=== PATIENT | male | born 1985 | race Caucasian/White ===

== ENCOUNTER 2023-08-24 08:55 | Emergency (ER) | payer OTHER ==
[2023-08-24 09:55] LABS: BASOPHILS # (AUTO) 0.1 10^3/uL (0.0-0.1); BASOPHILS % (AUTO) 1.6 %; EOSINOPHILS # (AUTO) 0.2 10^3/uL (0.0-0.7); EOSINOPHILS % (AUTO) 3.2 %; HGB - HEMOGLOBIN 14.2 g/dL (14.0-18.0); LYMPHOCYTES # (AUTO) 1.2 10^3/uL (1.5-3.5); MEAN CORPUSCULAR HEMOGLOBIN 29.3 pg (27.0-31.0); MEAN CORPUSCULAR HGB CONC 31.6 g/dL (32.0-36.0); MEAN CORPUSCULAR VOLUME 92.8 fL (80.0-94.0); MEAN PLATELET VOLUME 9.7 fL (7.4-11.4); MONOCYTES # (AUTO) 0.5 10^3/uL (0.0-1.0); MONOCYTES % (AUTO) 9.3 %; NEUTROPHILS # (AUTO) 3.6 10^3/uL (1.5-6.6); NEUTROPHILS % (AUTO) 63.5 %; PLT - PLATELET COUNT 264 10^3/uL (130-450); RED BLOOD COUNT 4.85 10^6/uL (4.70-6.10); RED CELL DISTRIBUTION WIDTH 12.7 % (12.0-15.0); WHITE BLOOD COUNT 5.6 x10^3/uL (4.8-10.8)
[2023-08-24 10:15] LABS: ALBUMIN 4.4 g/dL (3.2-5.5); ALBUMIN/GLOBULIN RATIO 1.6 (1.0-2.2); BILIRUBIN,TOTAL 0.4 mg/dL (0.2-1.0); CALCIUM 9.8 mg/dL (8.5-10.3); CREATININE 0.9 mg/dL (0.6-1.3); POTASSIUM 4.2 mmol/L (3.5-4.5); TOTAL PROTEIN 7.1 g/dL (6.4-8.9)
[2023-08-24 10:17] LABS: TROPONIN I HIGH SENSITIVITY 2.6 ng/L (2.3-19.7)
--- NOTE | 2023-08-24 11:09 | ED Physician Documentation ---
History of Present Illness - Stated complaint Stated Complaint: HIGH BP, LOPEZ, DIZZY - Chief complaint Chief Complaint: Neuro - History obtained from History obtained from: Patient - History of Present Illness Timing: How many days ago (5) - Additonal information Additional information: Minor Parham is a previously healthy 37-year-old male who comes to the emergency department with concerns of a 5-day history of headache, dizziness in the form of lightheadedness with worsening with head position as well as an elevated blood pressure. He does state that he hydrates adequately drinking up to 102 ounces of fluid a day. He has decreased his caffeine consumption the last 2 days. The drinks occasionally and maybe 20 beers per month. He is not currently drinking. He called the [facility] and they asked him to come to the emergency room for evaluation. He has a prior history of multiple ear infections as a child having tubes placed. He does not have a history of sinus infections. He denies exertional dyspnea is still going out to walk 5 miles per day. He is feeling he has some fluid retention when he walks. Review of Systems Constitutional: denies: Fever Eyes: denies: Decreased vision Ears: denies: Ear pain Nose: denies: Rhinorrhea / runny nose, Congestion, Sinus pressure / pain Throat: denies: Sore throat Cardiac: denies: Chest pain / pressure Respiratory: denies: Dyspnea, Cough GI: denies: Abdominal Pain, Nausea, Vomiting, Constipation, Diarrhea : denies: Dysuria, Frequency Skin: denies: Rash Musculoskeletal: denies: Neck pain, Back pain, Extremity pain Neurologic: reports: Headache. denies: Generalized weakness, Focal weakness, Numbness, Difficulty speaking, Confused, Altered mental status, Head injury, LOC PD PAST MEDICAL HISTORY - Past Medical History Past Medical History: No - Past Surgical History Past Surgical History: Yes HEENT: Myringotomy (tubes) - Present Medications Home Medications: Ambulatory Orders Medication Instructions Recorded Confirmed Testosterone Cypionate 100 mg IM DAILY 08/24/23 08/24/23 - Allergies Allergies/Adverse Reactions: Allergies Allergy/AdvReac Type Severity Reaction Status Date / Time No Known Drug Allergies Allergy Verified 08/24/23 09:09 - Social History Does the pt smoke?: No Smoking Status: Never smoker Does the pt drink ETOH?: Yes Does the pt have substance abuse?: No - Immunizations Immunizations are current?: Yes PD ED PE NORMAL - Vitals Vital signs reviewed: Yes (hpyertensive) - General General: Alert and oriented X 3, No acute distress, Well developed/nourished - HEENT HEENT: Atraumatic, PERRL, EOMI, Pharynx benign, Other (The left TM is clear with extensive tympanosclerosis present. The right is clear as well with less scarring. No maxillary sinus point tenderness.) - Neck Neck: Supple, no meningeal sign, No bony TTP - Cardiac Cardiac: RRR, No murmur - Respiratory Respiratory: No respiratory distress, Clear bilaterally - Abdomen Abdomen: Normal bowel sounds, Soft, Non tender, Non distended, No organomegaly - Back Back: No CVA TTP, No spinal TTP - Derm Derm: Normal color, Warm and dry, No rash - Extremities Extremities: No deformity, No edema - Neuro Neuro: Alert and oriented X 3, procedures tech 2-12 intact, No motor deficit, No sensory deficit, Normal speech Eye Opening: Spontaneous Motor: Obeys Commands Verbal: Oriented GCS Score: 15 - Psych Psych: Normal mood, Normal affect Results - Vitals Vitals: Vital Signs - 24 hr 08/24/23 08/24/23 08/24/23 09:05 11:22 12:50 Temperature 36.5 C Heart Rate 68 62 64 Respiratory 16 18 18 Rate Blood Pressure 143/88 H 131/85 H 142/93 H O2 Saturation 99 97 100 Oxygen O2 Source Room air - EKG (time done) 0954 EKG releavant findings:: EKG personally interpreted by author of this note. Relevant findings are: Rate: Rate (enter#) (64) Rhythm: NSR Ischemia: ST elevation c/w repol Compare to prior EKG: Old EKG unavailable Computer interpretation: Agree with computer - Labs Labs: Laboratory Tests 08/24/23 08/24/23 09:50 09:50 WBC 5.6 RBC 4.85 Hgb 14.2 Hct 45.0 MCV 92.8 MCH 29.3 MCHC 31.6 L RDW 12.7 Plt Count 264 MPV 9.7 Neut # (Auto) 3.6 Lymph # (Auto) 1.2 L Rusk # (Auto) 0.5 Eos # (Auto) 0.2 Baso # (Auto) 0.1 Absolute Nucleated RBC 0.00 Nucleated RBC % 0.0 Sodium 139 Potassium 4.2 Chloride 105 Carbon Dioxide 31 Anion Gap 3.0 L BUN 16 Creatinine 0.9 Estimated GFR (MDRD) 94 Glucose 78 Calcium 9.8 Total Bilirubin 0.4 AST 16 ALT 16 Alkaline Phosphatase 46 Troponin I High Sens 2.6 Total Protein 7.1 Albumin 4.4 Globulin 2.7 Albumin/Globulin Ratio 1.6 Lipase 20 - Rads (name of study) Sinus CT Relevant Findings:: Prelim report reviewed (Impression: Very minimal scattered areas of mucosal thickening without fluid levels.), EMP independent interpretation of test, See rad report Procedures - IVC sono (time) 1100 Bedside IVC sono: IVC measures (cm) (1.77), Euvolemia PD Medical Decision Making - ED course Complexity details: reviewed results, re-evaluated patient, considered differential, d/w patient Reviewed Lab Results: We reviewed a complete blood count which was demonstrating a normal white blood cell count normal hemoglobin hematocrit and platelets normal indices chemistries showed normal electrolytes normal kidney and liver function. These laboratory studies did not contribute to any specific diagnosis they are reassuring for a benign process. ED course: Minor Parham is presenting with a 5-day headache and what he is feeling his elevated blood pressure with readings up to 158 systolic.He does not have history of alcohol or caffeine withdrawal contributing to this headache. I felt important to evaluate him for dehydration and found that he was not dehydrated. He does have a history of prior multiple ENT infections and we did a CT screening exam of his sinuses which demonstrated minimal disease I did not feel the amount of sinus inflammation would account for the patient's symptoms.I have asked him to follow-up with his primary care doctor for further evaluation if required and indicated this likely would resolve within the week. Departure - Departure Disposition: 01 Home, Self Care Clinical Impression: Dizziness Cephalalgia Qualifiers: Headache type: tension-type Headache chronicity pattern: acute headache Intractability: not intractable Qualified Code(s): G44.209 - Tension-type headache, unspecified, not intractable Condition: Stable Instructions: ED Dizziness UKO, ED Headache Tension Follow-Up: Your, doctor [Other] Comments: Minor, today we did not find anything specific on your workup with the exception of some minimal amount of inflammation in your sinuses. The amount of inflammation is not significant on left consider treatment. Today we found that your blood counts electrolytes kidney and liver function were all normal. The supersensitive indicator of damage to your heart muscle was normal as well.This likely indicates that you have had a viral infection that you are clearing and the expectation is resolution of your symptoms within the next several days. If you have instead progression of your symptoms and develop signs of sinusitis with nasal drainage cough and fever a follow-up with your primary care doctor is indicated for treatment of sinusitis. Forms: PCP List Discharge Date/Time: 08/24/23 12:50
--- NOTE | 2023-08-24 11:44 | CT Report ---
PROCEDURE: Sinus INDICATIONS: headache dizzess TECHNIQUE: Noncontrast 3.0 mm axial images acquired from the frontal sinuses to the mid-sella, with coronal and sagittal reformats. For radiation dose reduction, the following was used: automated exposure control , adjustment of mA and/or kV according to patient size. COMPARISON: None. FINDINGS: Image quality: Excellent. Sinuses: Very minimal scattered areas of mucosal thickening. No fluid levels, mucous retention cyst o r mucoceles are identified. Ostiomeatal Complexes: Ostiomeatal complexes are patent. Miscellaneous: Visualized intra-orbital contents are normal. No tamar bullosa. No paradoxical tu rbinates. No nasal septal deviation. IMPRESSION: Very minimal scattered areas of mucosal thickening without fluid levels. Reviewed by: Melissa Song MD on 08/24/2023 11:42 AM PDT Approved by: Melissa Song MD on 08/24/2023 11:42 AM PDT Station ID: [id number]
[2023-08-24 13:20] VITALS: BP 142/93; O2SAT 100
== END 2023-08-24 12:50 | disposition home or self-care (01) ==
LOC: ED 08:55
DX: G44.209 Tension-type headache, unspecified, not intractable (principal); R42 Dizziness and giddiness
CPT/HCPCS: 36415; 80053; 83690; 84484; 85025; 93005; 99283; 99284